=== PATIENT | female | born 1940 | race Caucasian/White ===

== ENCOUNTER 2017-09-09 08:56 | Emergency (ER) | payer MEDICARE, OTHER ==
[~2017-09-09] VITALS: Ht 167.6 cm; Wt 69.0 kg
[~2017-09-09 08:56] MED LIST: CEPH500C2 PO; HYDR-3965 PO
[2017-09-09 09:03] VITALS: BP 147/78
== END 2017-09-09 10:02 | disposition home or self-care (01) ==
LOC: ER 08:57
DX: S61.214D Laceration without foreign body of right ring finger without damage to nail, subsequent encounter (principal); X58.XXXD Exposure to other specified factors, subsequent encounter
CPT/HCPCS: 99284; A6446; A6449